=== PATIENT | female | born 1970 | race Caucasian/White ===

== ENCOUNTER → 2021-05-21 | Outpatient (CLI) | payer BC ==
[~2021-05-21] MED LIST: COLACE 100MG C100 MG PO; HYDROCODON-ACE1 EAC4 PO; IBUPROFEN600 MG PO
[2021-05-21 10:04] LABS: HEMOGLOBIN 12.7 gm/dl (12.3-15.3); RED BLOOD COUNT 4.41 M/UL (4.00-5.10); WHITE BLOOD COUNT 6.8 K/UL (4.5-11.0)
[2021-05-21 10:26] LABS: BUN/CREATININE RATIO 12 (0-10)
== END ==
LOC: OPSV2 09:00
PROVIDERS: Obstetrics & Gynecology
DX: Z01.818 Encounter for other preprocedural examination (principal); D21.9 Benign neoplasm of connective and other soft tissue, unspecified
CPT/HCPCS: 36415; 80053; 81001; 85025; 93005

== ENCOUNTER → 2021-05-24 | Day surgery (SDC) | payer BC | END | disposition home or self-care (01) | LOC: OR 05:30 | DX: D25.9 Leiomyoma of uterus, unspecified (principal); E11.9 Type 2 diabetes mellitus without complications; Z88.2 Allergy status to sulfonamides | CPT/HCPCS: 84703; C1769; J0690; J1100; J1170; J1885; J2001; J2250; J2405; J2704; J3010; J7030; J7120 ==